=== PATIENT | male | born 1990 | race Caucasian/White ===

== ENCOUNTER 2016-09-24 18:32 | Emergency (ER) | payer MEDICAID ==
[~2016-09-24] VITALS: Ht 175.3 cm; Wt 81.2 kg
[2016-09-24 19:45] VITALS: BP 114/74
== END 2016-09-24 19:45 | disposition home or self-care (01) ==
LOC: ED 18:32
DX: M79.622 Pain in left upper arm (principal); S42.302D Unspecified fracture of shaft of humerus, left arm, subsequent encounter for fracture with routine healing; Z79.891 Long term (current) use of opiate analgesic; W01.0XXD Fall on same level from slipping, tripping and stumbling without subsequent striking against object, subsequent encounter